=== PATIENT | male | born 1965 | race Caucasian/White ===

== ENCOUNTER 2017-09-23 10:37 | Emergency (ER) | payer MEDICAID ==
[~2017-09-23] VITALS: Ht 177.8 cm; Wt 83.9 kg
[~2017-09-23 10:37] MED LIST: AUGMENTIN 875-1 EACH PO; BACTRIM DS 8001 TAB PO; FIORICET1 CAP PO; FLEXERIL10 M1 PO; FLEXERIL10 MG PO; FLOMAX 0.4MG C0.4 MG PO; IBU-8800 MG PO; LORTAB 5/500 501 TAB PO; MOTRIN800 MG PO; Oxycodone5 MG NG; PERCOCET 325 MG1 TA3 PO; PERCOCET 5/3251 EACH PO; PHENERGAN 25MG.25 MG PR; PYRIDIUM 200MG200 MG PO; TORADOL10 MG PO; ULTRAM50 MG PO; VICODIN 5/6 EACH/PAK PO; ZOFRAN ODT4 MG PO
--- OUTSIDE RECORDS SUMMARY | 2017-09-23 10:44 | External Medical Summary Rpt | CCD ---
Author Author , AUSTIN AVILA Address Unknown Phone [email or web address] Care Team Providers Care Youth Care Professional Name Role Phone SATHISH MITCHELL MD, Unavailable Unavailable SATHISH MITCHELL MD [facility] Unavailable Unavailable INC, [facility] Unavailable Unavailable [facility]PITAL P, [facility] Unavailable Unavailable [facility], [facility], Unavailable Unavailable PLLC, [facility] Purpose Continuity of Care Document - 09-24-2013 through 2016 Problems Code Diagnosis DOS Provider Status J0120 ACUTE 04-06-2017 [place] [facility] SINUS[facility]IS INC UNSPECIFIED R51 HEADACHE 04-06-2017 [facility] Z720 TOBACCO USE 04-06-2017 [facility] INC N201 CALCULUS OF 07-20-2016 [facility] P [id number] OTHER 07-19-2016 [place] SPECIFIED MEDICAL DISEASES OF IMAGING ASS INTESTINE N132 HYDRONEPHRO 07-19-2016 [place] SIS W/RENAL MEDICAL & URETRL IMAGING ASS CALCULOUS OBST N1330 UNSPECIFIED 07-19-2016 [facility] SIS R1031 RIGHT LOWER 07-19-2016 [facility] [id number] PERSONAL 07-19-2016 [place] [facility] CALCULI N209 URINARY 07-12-2016 [facility] UNSPECIFIED PLLC R109 UNSPECIFIED 07-12-2016 [facility] R319 HEMATURIA 07-12-2016 [facility] 305.1 305.1 09-24-2013 [place] TOBACCO USE [facility] 788.0 788.0 RENAL 09-24-2013 [facility] 847.2 847.2 09-24-2013 [facility] REGION J32.2 CHRONIC ETHMOIDAL SINUSITIS R51 HEADACHE Allergies, Adverse Reactions, Alerts Type Drug Allergy Adverse Reaction to Substance Substance Reaction Severity Hydrocodone Unknown Unknown Medications Na ND Rx Da Fi Fi Am Da Di Ph RX Ph St me C No te ll ll ou ys ag ar # ys at rm s nt no ma ic us Or Da si cy ia de te s n re d AM 66 06 07 20 10 00 CL Ac OX 68 -2 -2 .0 00 IN ti -C 51 1- 1- 00 00 IC ve LA 00 20 20 43 V 10 17 17 46 PH 87 0 20 AR 5- MA 12 CY 5 MG TA BL ET BU 00 06 07 10 2 00 CL Ac TA 52 -2 -2 .0 00 IN ti LB 71 1- 1- 00 00 IC ve -A 69 20 20 43 CE 50 17 17 46 PH TA 5 21 AR NH MA N- CY CA FF 50 -3 25 -4 0 Sa 63 12 0 No li 80 -0 ne 70 9- Lo 10 20 ng Fl 07 13 er us 5 h Ac 10 ti ML ve Sy ri ng e KE 00 12 0 No TO 40 -0 RO 93 9- Lo LA 79 20 ng C 50 13 er 30 1 Ac MG ti /M ve L AL Mo 00 12 0 No rp 40 -0 hi 91 9- Lo ne 25 20 ng 83 13 er 4M 0 G/ Ac Ml ti ve Sy ri ng e Sa 63 12 0 No li 80 -0 ne 70 9- Lo 10 20 ng Fl 07 13 er us 5 h Ac 10 ti ML ve Sy ri ng e Mo 00 12 0 No rp 40 -0 hi 91 9- Lo ne 25 20 ng 83 13 er 4M 0 G/ Ac Ml ti ve Sy ri ng e Vital Signs 09-24-2013 11:33 Name Value Interpretat Reference Comment ion Range Body 97.4 [degF] Temperature BP 86 mm[Hg] Diastolic BP Systolic 129 mm[Hg] Heart 66 /min Rate/Pulse O2% 96 % Respiratory 20 /min Rate 09-24-2013 10:40 Name Value Interpretat Reference Comment ion Range Body 98.4 [degF] Temperature 09-24-2013 09:48 Name Value Interpretat Reference Comment ion Range BP 86 mm[Hg] Diastolic BP Systolic 138 mm[Hg] Heart 83 /min Rate/Pulse O2% 96 % Respiratory 20 /min Rate Results Labs Lab Lab Date Result Refere Interp Status Commen Order Detail nces retati t Range on URINALYSIS/COMPLETE (09-24-2013 09:55) URINE YELLOW YELLOW complet COLOR 013 ed 09:55 URINE CLEAR CLEAR complet APPEARA 013 ed NCE 09:55 URINE NEGATIV NEG complet GLUCOSE 013 E ed - 09:55 DIPSTIC K URINE NEGATIV NEG complet BILIRUB 013 E ed IN - 09:55 DIPSTIC K URINE NEGATIV NEG complet KETONE 013 E mg/dL ed 09:55 URINE 1.015 1.005-1 complet SPECIFI 013 UNK .030 ed C 09:55 GRAVITY URINE NEGATIV NEG complet BLOOD 013 E ed 09:55 URINE 6.0 UNK 5.0-8.5 complet PH 013 ed 09:55 URINE NEGATIV NEG complet PROTEIN 013 E mg/dL ed - 09:55 DIPSTIC K URINE 0.2 NEG complet UROBILI 013 E.U./dL ed NOGEN - 09:55 DIPSTIC K URINE NEGATIV NEG complet NITRATE 013 E ed - 09:55 DIPSTIC K URINE NEGATIV NEG complet LEUK 013 E ed ESTERAS 09:55 E URINE OCC 0 complet RBC 013 rbc/hpf ed 09:55 URINE OCC OCC complet SQUAMOU 013 #/hpf ed S CELLS 09:55 COMPREHENSIVE METABOLIC PANEL (09-24-2013 09:50) Glucose 130 74-106 complet 013 mg/dL ed Bld-mCn 09:50 c BUN 12 7-18 complet Bld-mCn 013 mg/dL ed c 09:50 Creat 1.1 0.8-1.3 complet SerPl-m 013 mg/dL ed Cnc 09:50 Creat 94 50-200 complet Cl 013 ML/MIN ed predict 09:50 ed SerPl C-G-vRa te GFR/BSA 71 Greater complet .pred 013 ML/MIN than ed SerPl 09:50 60 Schwart z-vRate Sodium 136 136-145 complet SerPl-s 013 mmoL/L ed Cnc 09:50 Potassi 4.4 3.5-5.1 complet um 013 mmoL/L ed SerPl-s 09:50 Cnc Chlorid 101 98-107 complet e 013 mmoL/L ed SerPl-s 09:50 Cnc CO2 30 21.0-32 complet SerPl-s 013 mmoL/L .0 ed Cnc 09:50 Calcium 9.0 8.5-10. complet 013 mg/dL 1 ed SerPl-m 09:50 Cnc Prot 8.3 6.4-8.2 complet SerPl-m 013 gm/dL ed Cnc 09:50 Albumin 3.5 3.4-5.0 complet 013 gm/dL ed SerPl-m 09:50 Cnc Globuli 4.8 1.3-3.2 complet n 013 gm/dL ed Ser-mCn 09:50 c Albumin 0.7 UNK 1.1-1.8 complet /Glob 013 ed SerPl-m 09:50 Rto Bilirub 0.5 0.2-1.0 complet 013 mg/dL ed SerPl-m 09:50 Cnc AST 19 U/L 15-37 complet SerPl-c 013 ed Cnc 09:50 ALT 36 U/L 30-65 complet SerPl-c 013 ed Cnc 09:50 ALP 128 U/L 50-136 complet SerPl-c 013 ed Cnc 09:50 CBC with AUTO DIFF (09-24-2013 09:50) WBC # 09-2 10.2 4.8-10. complet Bld 013 K/MM3 8 ed Auto 09:50 RBC # 09-24-2 5.19 4.6-6.2 complet Bld 013 M/mm3 ed Auto 09:50 Hgb 16.2 14.1-18 complet Bld-mCn 013 g/dL .0 ed c 09:50 Hct Fr 47.9 % 42.0-52 complet Bld 013 .0 ed 09:50 MCV RBC 12-09-2 92.4 fl 82.2-97 complet 013 .8 ed 09:50 MCH RBC 12-09-2 31.3 pg 27-31.2 complet Qn 013 ed Auto 09:50 MEAN 12-09-2 33.9 31.8-35 complet CORPUSC 013 g/dl .4 ed ULAR 09:50 HGB CONC RDW RBC -09-2 14.2 % 11.5-17 complet Auto 013 .5 ed 09:50 Platele 12-09-2 260 142-424 complet t Bld 013 K/mm3 ed Ql 09:50 Manual MEAN 12-09-2 7.6 fl 7.4-10. complet PLATELE 013 4 ed T 09:50 VOLUME Granulo 12-09-2 71.1 % 37.0-80 complet cytes 013 .0 ed Fr Bld 09:50 Auto LYMPH % 12-09-2 22.1 % 10-50 complet 013 ed 09:50 Monocyt 12-09-2 4.9 % 1.7-9.3 complet es Fr 013 ed Bld 09:50 Auto Eosinop 12-09-2 1.5 % 0.1-12. complet hil Fr 013 0 ed Bld 09:50 Auto Basophi 12-09-2 0.3 % 0.1-2.0 complet ls Fr 013 ed Bld 09:50 Auto Granulo 12-09-2 7.2 1.3-8.0 complet cytes # 013 K/mm3 ed Bld 09:50 Auto Lymphoc 12-09-2 2.3 0.7-4.5 complet ytes Fr 013 K/mm3 ed Bld 09:50 Auto Monocyt 12-09-2 0.5 0.1-1.0 complet es # 013 K/mm3 ed Bld 09:50 Auto Eosinop 12-09-2 0.2 0.0-0.4 complet hil # 013 K/mm3 ed Bld 09:50 Auto Basophi 12-09-2 0.0 0-0.2 complet ls # 013 K/MM3 ed Bld 09:50 Auto Encounters Encounter Start End Date Code Location Performer Type Date [facility] NINO - 7 7 [facility] NINO - 6 6 [facility] Emergency KAYLIN MITCHELL MD (ER) 3 10:33 3 11:41 [facility]
--- OUTSIDE RECORDS SUMMARY | 2017-09-23 10:44 | External Medical Summary Rpt | CCD ---
Author Author , AUSTIN AVILA Address Unknown Phone [email or web address] Care Team Providers Care Corporate Accountant Name Role Phone [facility] Unavailable Unavailable INC, [facility] Unavailable Unavailable HOSPITAL P, [facility] Unavailable Unavailable IM[facility]ING [facility], [facility], Unavailable Unavailable PLLC, [facility] Purpose Continuity of Care Document - 06-11-2016 through 2016 Problems Code Diagnosis DOS Provider Status J0120 ACUTE 04-06-2017 [employer] ETHMOIDAL [facility] SINUSITIS INC UNSPECIFIED R51 HEADACHE 04-06-2017 [facility] Z720 TOBACCO USE 04-06-2017 [facility] INC N201 CALCULUS OF 07-20-2016 [facility] P [id number] OTHER 07-19-2016 [place] SPECIFIED MEDICAL DISEASES OF IMAGING ASS INTESTINE N132 HYDRONEPHRO 07-19-2016 [place] SIS W/RENAL MEDICAL & URETRL IMAGING ASS CALCULOUS OBST N1330 UNSPECIFIED 07-19-2016 [facility], HYDRONEPHRO PLLC SIS R1031 RIGHT LOWER 07-19-2016 [place] [facility] [id number] PERSONAL 07-19-2016 [employer] HISTORY OF [facility] URINARY INC CALCULI N209 URINARY 07-12-2016 [facility], UNSPECIFIED PLLC R109 UNSPECIFIED 07-12-2016 [place] [facility] R319 HEMATURIA 07-12-2016 [facility] Medications Na ND Rx Da Fi Fi [...] 17 46 PH TA 5 21 AR UT MA N- CY CA FF 50 -3 25 -4 0 Encounters Encounter Start End Date Code Location Performer Type Date [facility] NINO - 7 7 [facility] NINO - 6 6 [facility] NINO - 6 6 [facility] NINO - 6 6 [facility]
--- OUTSIDE RECORDS SUMMARY | 2017-09-23 10:44 | External Medical Summary Rpt | CCD ---
Author Author , AUSTIN AVILA Address Unknown Phone [email or web address] Care Team Providers Care Patient Service Specialist Name Role Phone [facility] Unavailable Unavailable INC, [facility] Unavailable [facility]available [facility], [facility] Unavailable [facility]available [facility], [facility], Unavailable Unavailable PLLC, [facility] Purpose Continuity of Care Document - 06-11-2016 through 2016 Problems Code Diagnosis DOS Provider Status J0120 ACUTE 04-06-2017 [place] [facility] SINUSITIS INC UNSPECIFIED R51 HEADACHE 04-06-2017 [facility] Z720 TOBACCO USE 04-06-2017 [facility] INC N201 CALCULUS OF 07-20-2016 [facility] P K6389 OTHER 07-19-2016 [place] SPECIFIED MEDICAL DISEASES OF IMAGING ASS INTESTINE N132 HYDRONEPHRO 07-19-2016 [place] SIS W/[facility]NAL MEDICAL & URETRL IMAGING ASS CALCULOUS OBST N1330 UNSPECIFIED 07-19-2016 [facility], HYDRONEPHRO PLLC SIS R1031 RIGHT LOWER 07-19-2016 [place] [facility] [id number] PERSONAL 07-19-2016 [place] [facility] URINARY INC CALCULI N209 URINARY 07-12-2016 [facility], UNSPECIFIED PLLC R109 UNSPECIFIED 07-12-2016 [place] [facility] R319 HEMATURIA [...] 17 46 PH TA 5 21 AR PR MA N- CY CA FF 50 -3 25 -4 0 Encounters Encounter Start End Date Code Location Performer Type Date [facility] NINO - 7 7 [facility] NINO - 6 6 [facility] NINO - 6 6 [facility] NINO - 6 6 [facility]
--- OUTSIDE RECORDS SUMMARY | 2017-09-23 10:44 | External Medical Summary Rpt | CCD ---
Author Author , AUSTIN AVILA Address Unknown Phone [email or web address] Care Team Providers Care Lead Front Desk Agent Name Role Phone SATHISH MITCHELL MD, Unavailable Unavailable SATHISH MITCHELL MD [facility] Unavailable Unavailable INC, [facility] Unavailable Unavailable [facility]OSPITAL P, [facility] Unavailable Unavailable IM[facility]ING [facility], [facility], Unavailable Unavailable PLLC, [facility] Purpose Continuity of Care Document - 09-24-2013 through 2016 Problems Code Diagnosis DOS Provider Status J0120 ACUTE 04-06-2017 [place] [facility] SINUSITIS INC UNSPECIFIED R51 HEADACHE 04-06-2017 [facility] Z720 TOBACCO USE 04-06-2017 [facility] INC N201 CALCULUS OF 07-20-2016 [facility] P [id number] OTHER 07-19-2016 [place] SPECIFIED MEDICAL DISEASES OF IMAGING ASS INTESTINE N132 HYDRONEPHRO 07-19-2016 [place] SIS W/RENAL MEDICAL & URETRL IMAGING ASS CALCULOUS OBST N1330 UNSPECIFIED 07-19-2016 [facility] HYDRONEPHRO [facility] SIS R1031 RIGHT LOWER 07-19-2016 [place] [facility] [id number] PERSONAL 07-19-2016 [place] [facility] CALCULI N209 URINARY 07-12-2016 [facility], UNSPECIFIED PLLC R109 UNSPECIFIED 07-12-2016 [place] [facility] R319 HEMATURIA 07-12-2016 [facility] 305.1 305.1 09-24-2013 [place] TOBACCO USE [facility] 788.0 788.0 RENAL 09-24-2013 [facility] 847.2 847.2 09-24-2013 [facility] REGION J32.2 CHRONIC ETHMOIDAL SINUSITIS R51 HEADACHE [...] 17 46 PH TA 5 21 AR [place] MA N- CY CA FF 50 -3 [...] [facility] NINO - 7 7 [facility] NINO [facility] 6 6 [facility] Emergency KAYLIN MITCHELL MD (ER) 3 10:33 3 11:41 [facility]
--- OUTSIDE RECORDS SUMMARY | 2017-09-23 10:45 | External Medical Summary Rpt | CCD ---
Demographics Preferred Language Tuvaluan Marital Status Unknown Holiness Affiliation Unknown Race Unknown Ethnic Group Unknown Author Author , AUSTIN AVILA Address Unknown Phone Immunization No patient found.
--- OUTSIDE RECORDS SUMMARY | 2017-09-23 10:45 | External Medical Summary Rpt ---
Author Author [employer], [employer] Organization [employer] Address Unknown Phone Unavailable Results Comprehensive metabolic 2000 panel in Serum or Plasma Observa Value Referen Units Interpr Notes Date tion ce etation Range Albumin/G 1.1 - 1.8 No Low No Apr 06 lobulin informati informati 2017 [Mass on in on in 12:40 PM ratio] in source source Serum or data data Plasma Albumin 3.4 - 5.0 gm/dL Normal No Apr 06 [Mass/vol informati 2016 ume] in on in 12:40 PM Serum or source Plasma data Alkaline 46 - 116 U/L Normal No Apr 06 phosphata informati 2017 se on in 12:40 PM [Enzymati source c data activity/ volume] in Serum or Plasma Bilirubin 0.2 - 1.0 mg/dL Normal No Apr 06 .total informati 2016 [Mass/vol on in 12:40 PM ume] in source Serum or data Plasma Urea 7 - 18 mg/dL Normal No Apr 06 nitrogen informati 2017 [Mass/vol on in 12:40 PM ume] in source Serum or data Plasma Calcium 8.5 - mg/dL Normal No Apr 06 [Mass/vol 10.1 informati 2016 ume] in on in 12:40 PM Serum or source Plasma data Chloride 98 - 107 mmoL/L Normal No Apr 06 [Moles/vo informati 2017 lume] in on in 12:40 PM Serum or source Plasma data Carbon 21.0 - mmoL/L Normal No Apr 06 dioxide, 32.0 informati 2017 total on in 12:40 PM [Moles/vo source lume] in data Serum or Plasma Creatinin 0.70 - mg/dL Normal No Apr 06 e 1.30 informati 2017 [Mass/vol on in 12:40 PM ume] in source Serum or data Plasma Creatinin 50 - 200 ML/MIN Normal No Apr 06 e renal informati 2017 clearance on in 12:40 PM source predicted data by Cockcroft -Gault formula Estimated >60 ML/MIN No REFERENCE Apr 06 informati RANGE: 2017 glomerula on in >60 12:40 PM r source ML/MIN/1. filtratio data 73 SQUARE n rate METERSIf (GF this patient is -A merican, then multiply theresult by 1.210. Globulin 1.3 - 3.2 gm/dL High No Apr 06 [Mass/vol informati 2016 ume] in on in 12:40 PM Serum source data Glucose 74 - 106 mg/dL High No Apr 06 [Mass/vol informati 2016 ume] in on in 12:40 PM Serum or source Plasma data Potassium 3.5 - 5.1 mmoL/L Normal No Apr 062016 [Moles/vo on in 12:40 PM lume] in source Serum or data Plasma Sodium 136 - 145 mmoL/L Normal No Apr 06 [Moles/vo informati 2016 lume] in on in 12:40 PM Serum or source Plasma data Aspartate 15 - 37 U/L Low No Apr 062016 aminotran on in 12:40 PM sferase source [Enzymati data c activity/ volume] in Serum or Plasma Alanine 12 - 78 U/L Normal No Apr 06 aminotran 2016 sferase on in 12:40 PM [Enzymati source c data activity/ volume] in Serum or Plasma Protein 6.4 - 8.2 gm/dL Normal No Apr 06 [Mass/vol informati 2016 ume] in on in 12:40 PM Serum or source Plasma data CBC W Auto Differential panel in Blood Observa Value Referen Units Interpr Notes Date tion ce etation Range Basophils 0 - 0.2 K/MM3 Normal No Apr 062016 [#/volume on in 12:40 PM ] in source Blood by data Automated count Basophils 0.1 - 2.0 % Normal No Apr 06 /2016 leukocyte on in 12:40 PM s in source Blood by data Automated count Eosinophi 0.0 - 0.4 K/mm3 Normal No Apr 06 ls 2016 [#/volume on in 12:40 PM ] in source Blood by data Automated count Eosinophi 0.1 - % Normal No Apr 06 ls/100 12.0 inform2016 leukocyte on in 12:40 PM s in source Blood by data Automated count Granulocy 1.3 - 8.0 K/mm3 Normal No Apr 06 mookie 2016 [#/volume on in 12:40 PM ] in source Blood by data Automated count Granulocy 37.0 - % Normal No Apr 06 mookie/100 80.0 inform2016 leukocyte on in 12:40 PM s in source Blood by data Automated count Hematocri 42.0 - % Normal No Apr 06 t [Volume 52.0 informati 2016 on in 12:40 PM Fraction] source of Blood data Hemoglobi 14.1 - g/dL Normal No Apr 06 n 18.0 informati 2016 [Mass/vol on in 12:40 PM ume] in source Blood data Lymphocyt 0.7 - 4.5 K/mm3 Normal No Apr 06 es inform2016 [#/volume on in 12:40 PM ] in source Unspecifi data ed specimen by Automated count Lymphocyt 10 - 50 % Normal No Apr 06 es inform2016 [#/volume on in 12:40 PM ] in source Unspecifi data ed specimen by Automated count Erythrocy 27 - 31.2 pg High No Apr 06 te mean 2016 corpuscul on in 12:40 PM ar source hemoglobi data n [Entitic mass] Erythrocy 31.8 - g/dl Normal No Apr 06 te mean 35.4 inform2016 corpuscul on in 12:40 PM ar source hemoglobi data n concentra tion [Mass/vol ume] by Automated count Erythrocy 82.2 - fl Normal No Apr 06 te mean 97.8 inform2016 corpuscul on in 12:40 PM ar volume source [Entitic data volume] by Automated count Monocytes 0.1 - 1.0 K/mm3 Normal No Apr 062016 [#/volume on in 12:40 PM ] in source Blood by data Automated count Monocytes 1.7 - 9.3 % Normal No Apr 06 /100 informati 2017 leukocyte on in 12:40 PM s in source Blood by data Automated count Platelet 7.4 - fl Low No Apr 06 mean 10.4 inform2016 volume on in 12:40 PM [Entitic source volume] data in Blood by Automated count Platelets 142 - 424 K/mm3 Normal No Apr 06 inform2016 [#/volume on in 12:40 PM ] in source Blood data Erythrocy 4.6 - 6.2 M/mm3 Normal No Apr 06 mookie informati 2016 [#/volume on in 12:40 PM ] in source Amniotic data fluid Erythrocy 11.5 - % Normal No Apr 06 te 17.5 informati 2016 distribut on in 12:40 PM ion width source [Entitic data volume] by Automated count Leukocyte 4.8 - K/MM3 Normal No Apr 06 s 10.8 informati 2016 [#/volume on in 12:40 PM ] in source Blood data
--- OUTSIDE RECORDS SUMMARY | 2017-09-23 10:45 | External Medical Summary Rpt ---
Author Author [employer], [employer] Address [...]
--- OUTSIDE RECORDS SUMMARY | 2017-09-23 10:45 | External Medical Summary Rpt | CCD ---
Demographics Preferred Language Sao Tomean Marital Status Unknown Sabianism Affiliation Unknown Race Unknown Ethnic Group Unknown Author Author , AUSTIN AVILA Address Unknown Phone Immunization No patient found.
--- NOTE | 2017-09-23 10:56 | Urgent Treatment Center Report ---
History of Present Issue Date/Time Seen by Provider 09/23/17 1052 Visit Reason Pt arrived:Walked Presenting Problem:HEADACHE, DENTAL PAIN X2 WKS Location if Accident: Onset of symptoms date/time:/ or onset unknown for:MEDICAL HX UNKNOWN Have you (or family members/close friends) recently traveled outside the [place]? N If Yes, where/when: Have you had exposure to infectious disease within the past month? TB? Other? Specify: Patient state that he has been having sinus pain and pressure States that he has done this before when he had a sinus infection State that he has had a sinus headache for 2 weeks States that he feels like it is another sinus infection and it keeps getting worse state that it is making him hurt in his upper jaw area where he has dentures so he knows it is not dental problems ALLERGIES Coded Allergies: hydrocodone (06/11/16) Home Medications Active Scripts Amoxicillin/Potassium Clav (Augmentin 875-125 Tablet) 1 EACH PO BID #20 TAB Prov: 04/06/17 BUTALB/ACETAMINOPHEN/CAFFEINE (Fioricet 50-300-40 MG Capsule) 1 CAP PO Q6HP PRN headache #10 CAP Prov: 04/06/17 History Medical History General CAD? No Angina: No CHF? No DVT? No PE? No GERD? No Gastric ulcers? No GI Bleed? No Hernia? No Hypothyroidism? No Renal Insuffiency? No UTI? No Stones? Yes GB Disease: No Nephritic Syndrome? No Asplenia? No Hepatitis? No Sickle Cell Disease? No Migraines? No Cataracts? No Glaucoma? No MRSA? No Anxiety? No Depression? No Immunization HX DT/Tetanus 07/06/11 Flu 2YRSorMore Pneumonia NEVER Surgical Hx Previous Surgery?Y CYSTOSCOPE WITH B.E. Family History Family HX CAD No Social History Smoking Hx Smoker: Current Every Day Smoker Tobacco: Yes Type Cigarettes Packs/day < 1 Pack Alcohol Alcohol: No Review of Systems All Other Systems Reviewed and Negative ENT nose discharge, nose congestion. Physical Exam Vital Signs Vital Signs Date Time Temp Pulse Resp B/P Pulse O2 O2 Flow FiO2 Ox Delivery Rate 09/23 1050 98.3 88 20 155/93 98 General Appearance normal appearance, WD/WN, no apparent distress Ear, Nose, Throat Tenderness noted over frontal sinus, reports thick yellowish green drainage from nose Respiratory Status Yes: trachea midline, chest symmetrical, non tender chest. No: respiratory distress. Lung Sounds bilateral: normal breath sounds, lungs clear. Cardiovascular normal exam, regular rate/rhythm, no peripheral edema Neurologic alert, normal exam, oriented x 3 Medical Decision Making LABS/Meds/Orders Pt receiving controlled substance in ED? No Results/Orders Current Medication Orders Sig/Kane Start time Last Medication Dose Route Stop Time Status Admin Ketorolac 60 MG ONCE ONE 09/23 1100 DC Tromethamine IM 09/23 1101 Departure Departure Time of Disposition 110 Disposition DC Home or Self Care(routine) Clinical Impression Primary Impression: Sinusitis Qualifiers: Sinusitis location: frontal Chronicity: unspecified Qualified Code: J32.1 - Chronic frontal sinusitis Condition STABLE Patient Instructions DI for Sinusitis, Sinusitis Additional Instructions Start antibiotic. Sinus infections may take 2-3 days to notice much improvement so be sure to use conservative measures as discussed for symptoms Ok to continue Sudafed Flonase 2 spray in each nostril daily to help with nasal congestion, sinus an ear pressure/inflammation Lots of Fluids Sleep elevated Humidifer/vaporizer Augmentin can cause GI effects. Probiotics may help to prevent these symptoms Discharge Counseling Counseled pt/family regarding diagnosis, test results, medications/RX, home care, follow up needs Prescriptions Current Visit Scripts Amoxicillin/Potassium Clav (Augmentin 875-125 Tablet) 1 EACH PO BID #20 TAB Fluticasone Propionate (Flonase 50 Mcg Nasal [place]) 2 SPRAY NA DAILY #1 BOT Methylprednisolone (Medrol Dose [place]) 4 MG PO UD #1 DALE TAKE DIRECTED ON PACKAGING at 1104
[2017-09-23] MEDS ORDERED: MEDROL 4MG. DOSE4 MG PO (11:03)
[2017-09-23] MEDS ORDERED: FLONASE 50 MCG16 GM (11:03)
[2017-09-23] MEDS ORDERED: AUGMENTIN 875-1 EACH PO (11:03)
[2017-09-23 11:09] VITALS: BP 145/80
== END 2017-09-23 11:15 | disposition home or self-care (01) ==
LOC: UTC 10:37
DX: J32.1 Chronic frontal sinusitis (principal)